=== PATIENT | female | born 1965 | race African-American/Black ===

== ENCOUNTER 2020-11-16 01:49 | Emergency (ER) | payer MEDICAID, OTHER, SELFPAY ==
[2020-11-16] MEDS ORDERED: Ondansetron PF 4 MG/2 ML Vial ONE (02:08)
[2020-11-16] MEDS ORDERED: Ketorolac Tromethamine 30 MG/ML VIAL ONE (02:08)
[2020-11-16 03:30] LABS: #Basophils 0.1 thou/uL (0.0-0.2); #Eosinphils 0.1 thou/uL (0.0-0.7); #Lymphocytes 2.7 thou/uL (1.20-3.40); #Monocytes 0.5 thou/uL (0.11-0.59); #Neutrophils 2.1 thou/uL (1.40-6.50); %Basophils 2.4 % (0.0-1.0); %Eosinophils 2.1 % (0.0-10.0); %Lymphocytes 48.5 % (21.0-51.0); %Monocytes 9.4 % (0.0-10.0); %Neutrophils 37.7 % (42.0-75.0); Hemoglobin 10.4 g/dL (12.0-16.0); Mean Corpuscular HGB CONC 29.9 g/dL (32.0-36.0); Mean Corpuscular Hemoglobin 22.7 pg (27.0-31.0); Platelet Count 330 thou/uL (130-400); RBC Distribution Width 12.9 % (11.5-14.5); Red Blood Cell (RBC) Count 4.57 mill/uL (4.20-5.40); White Blood Cell (WBC) Count 5.5 thou/uL (4.8-10.8)
[2020-11-16 03:31] LABS: Large Platelets SLIGHT; MDiff Complete? YES; Ovalocytes SLIGHT = 2-5 cells (100X) (0-1/hpf); Platelet Morphology Comment Appears Adequate; Poikilocytosis SLIGHT = 6-15 cells (100X) (0-5/hpf)
[2020-11-16 03:33] LABS: ALT (SGPT) 14 U/L (8-55); AST (SGOT) 19 U/L (5-34); Albumin 3.7 g/dL (3.5-5.0); Alkaline Phosphatase 43 U/L (40-110); Anion Gap 15 mmol/L (10-20); BUN (Urea Nitrogen) 20 mg/dL (9.8-20.1); Bilirubin, Total 0.2 mg/dL (0.2-1.2); Calc. Creatinine Clearance 0 mL/min (70-130); Calcium 9.5 mg/dL (7.8-10.44); Carbon Dioxide 28 mmol/L (22-29); Chloride 102 mmol/L (98-107); Glucose 89 mg/dL (70-105); Lipase 114 U/L (8-78); Protein, Total 6.7 g/dL (6.0-8.3); Sodium 141 mmol/L (136-145)
[2020-11-16 04:46] LABS: Bilirubin Negative (Negative); Blood, Urine Negative (Negative); Clarity Clear (Clear); Glucose, Urine (Dipstick) Negative (Negative); Ketone, Urine Negative (Negative); Leukocyte Negative (Negative); Nitrite Negative (Negative); Protein, Urine (Dipstick) Negative (Neg-Trace); Urobilinogen 0.2 mg/dL (Less than 2); pH, Urine 8.5 (5.0-9.0)
[2020-11-16 04:52] LABS: RBC/HPF 0-3 HPF (0-3); Squamous Epithelial 0-3 HPF (0-3); WBC/HPF None Seen HPF (0-3)
[2020-11-16] MEDS ORDERED: Sodium Chloride 0.9% 1,000 ML BAG ONE (06:49)
== END 2020-11-16 04:58 | disposition home or self-care (01) ==
LOC: MADERS 01:49
DX: R10.31 Right lower quadrant pain (principal); R10.32 Left lower quadrant pain; E11.9 Type 2 diabetes mellitus without complications; I10 Essential (primary) hypertension; Z79.84 Long term (current) use of oral hypoglycemic drugs; Z79.899 Other long term (current) drug therapy
CPT/HCPCS: 51701; 74176; 80053; 81001; 83605; 83690; 85025; 96374; 96375; J1885; J2405; J7050

== ENCOUNTER 2022-05-25 08:20 | Emergency (ER) | payer SELFPAY ==
[2022-05-25] MEDS ORDERED: Ondansetron PF 4 MG/2 ML Vial ONE (08:44)
[2022-05-25] MEDS ORDERED: Labetalol HCl 100 MG/20 ML VIAL ONE (08:44)
[2022-05-25 09:03] LABS: #Basophils 0.1 thou/uL (0.0-0.2); #Eosinphils 0.1 thou/uL (0.0-0.7); #Lymphocytes 2.3 thou/uL (1.20-3.40); #Monocytes 0.6 thou/uL (0.11-0.59); #Neutrophils 5.7 thou/uL (1.40-6.50); %Basophils 1.5 % (0.0-1.0); %Eosinophils 0.8 % (0.0-10.0); %Lymphocytes 26.2 % (21.0-51.0); %Monocytes 6.4 % (0.0-10.0); %Neutrophils 65.1 % (42.0-75.0); Hemoglobin 12.6 g/dL (12.0-16.0); INR-International Normal Ratio 0.9; Mean Corpuscular HGB CONC 30.8 g/dL (32.0-36.0); Mean Corpuscular Hemoglobin 22.3 pg (27.0-31.0); Mean Corpuscular Volume 72.3 fl (78.0-98.0); Mean Platelet Volume 7.7 fL (7.4-10.4); Platelet Count 311 10x3/uL (130-400); Prothrombin Time 12.8 sec (12.0-14.7); RBC Distribution Width 12.7 % (11.5-14.5); Red Blood Cell (RBC) Count 5.64 mill/uL (4.20-5.40); White Blood Cell (WBC) Count 8.7 10x3/uL (4.8-10.8)
[2022-05-25] MEDS ORDERED: hydrALAZINE 20 MG/ML VIAL ONE (09:04)
[2022-05-25 09:05] LABS: Anisocytosis SLIGHT = 6-15 cells (100X) (0-5/hpf); Platelet Morphology Comment Appears Adequate
[2022-05-25 09:10] LABS: ALT (SGPT) 20 U/L (8-55); AST (SGOT) 22 U/L (5-34); Albumin 4.2 g/dL (3.5-5.0); Alkaline Phosphatase 94 U/L (40-110); Anion Gap 18 mmol/L (10-20); BUN (Urea Nitrogen) 14 mg/dL (9.8-20.1); Bilirubin, Total 0.5 mg/dL (0.2-1.2); CK (CPK) 207 U/L (29-168); Calc. Creatinine Clearance 0 mL/min (70-130); Calcium 10.2 mg/dL (7.8-10.44); Carbon Dioxide 21 mmol/L (22-29); Chloride 101 mmol/L (98-107); Estimated GFR 50; Globulin 3.4 g/dL (2.4-3.5); Magnesium 1.8 mg/dL (1.6-2.6); Potassium 3.9 mmol/L (3.5-5.1); Protein, Total 7.6 g/dL (6.0-8.3); Sodium 136 mmol/L (136-145)
[2022-05-25 09:13] LABS: CKMB 2.1 ng/mL (0-6.6)
[2022-05-25] MEDS ORDERED: Aspirin 325 MG TAB ONE (09:16)
[2022-05-25 09:24] LABS: Glucose 432 mg/dL (70-105)
[2022-05-25] MEDS ORDERED: Metoclopramide HCl 10 MG/2 ML VIAL ONE (09:26)
[2022-05-25] MEDS ORDERED: Insulin Regular 300 UNITS/3 ML VIAL ONE ×2 (09:27→13:01)
[2022-05-25] MEDS ORDERED: Meclizine HCl 25 MG TAB ONE (09:37)
[2022-05-25] MEDS ORDERED: Sodium Chloride 0.9% 100 ML BAG ONE (09:56)
[2022-05-25] MEDS ORDERED: Iopamidol 370 76% 125 ML VIAL FS ONE (09:56)
[2022-05-25] MEDS ORDERED: Prochlorperazine 10 MG/2 ML VIAL ONE (10:33)
[2022-05-25] MEDS ORDERED: Diazepam 10 MG/2 ML SYRINGE ONE (10:35)
[2022-05-25] MEDS ORDERED: Sodium Chloride 0.9% 1,000 ML ONE (10:35)
[2022-05-25 10:48] LABS: Amphetamine Not Detected (NotDetected); Barbiturates Screen Not Detected (NotDetected); Benzodiazepine Screen Not Detected (NotDetected); Cocaine Metabolite Screen Not Detected (NotDetected); Medtox Control Line Valid? VALID (VALID); Methadone Not Detected (NotDetected); Methamphetamine Not Detected (NotDetected); Opiate Screen Not Detected (NotDetected); Oxycodone Screen Not Detected (NotDetected); Phencyclidine (PCP) Not Detected (NotDetected); THC/Cannabinoid Screen Not Detected (NotDetected); Tricyclic Screen Not Detected (NotDetected)
[2022-05-25 12:05] LABS: Calcium, Ionized 1.23 mmol/L (1.15-1.33); Chloride POC ABG 107 mmol/L (98-107); Hematocrit POC ABG 40 % (38-51); Hemoglobin POC ABG 13.7 g/dL (12.0-17.0); O2 Saturation (calc) POC ABG 96.9 % (94.0-98.0); Potassium POC ABG 3.8 mmol/L (3.5-4.5); Sodium POC ABG 140 mmol/L (138-146); pH (Arterial) 7.333 (7.35-7.45)
[2022-05-25 12:39] LABS: Anion Gap 18 mmol/L (10-20); BUN (Urea Nitrogen) 14 mg/dL (9.8-20.1); Calc. Creatinine Clearance 0 mL/min (70-130); Calcium 9.5 mg/dL (7.8-10.44); Carbon Dioxide 20 mmol/L (22-29); Chloride 105 mmol/L (98-107); Estimated GFR 61; Glucose 319 mg/dL (70-105); Potassium 3.8 mmol/L (3.5-5.1); Sodium 139 mmol/L (136-145)
[2022-05-25] MEDS ORDERED: Sodium Chloride 0.9% 2,000 ML ONE (13:01)
== END 2022-05-25 14:06 | disposition short-term general hospital (02) ==
LOC: MADERS 08:20
DX: I63.9 Cerebral infarction, unspecified (principal); I10 Essential (primary) hypertension; E11.65 Type 2 diabetes mellitus with hyperglycemia; E78.00 Pure hypercholesterolemia, unspecified
CPT/HCPCS: 36416; 70450; 70496; 70498; 71045; 80053; 80306; 82010; 82330; 82550; 82553; 82803; 83735; 83880; 84443; 84484; 85025; 85610; 85730; 93005; 96361; 96374; 96375; J0360; J0780; J1815; J2405; J2765; J3360; J7050; Q9967